=== PATIENT | male | born 1975 | race Hispanic/Latino ===

== ENCOUNTER 2016-11-24 10:56 | Emergency (ER) | payer OTHER ==
[2016-11-24 11:22] VITALS: BMI 27.4
[2016-11-24 11:25] VITALS: BP 149/77; PULSE 81; RESP 16; TEMP 98.8; O2SAT 97
--- NOTE | 2016-11-24 11:35 | ED PDOC ---
Arrival/HPI - General Chief Complaint: Upper Extremity Problem/Injury Time Seen by Provider: 11/24/16 11:27 Historian: Patient - History of Present Illness Narrative History of Present Illness (Text): 11/24/16 11:31 40 y/o male, no significant pmh, nkda, c/o lt. hand 2nd digit index pain s/p smashed by the door at home about 2 hours ago accidentally. Aching pain, no numbness or tingling, no dizziness, no rash, no pain medication taken at home, no other medical or psychological complaints. Past Medical History - Provider Review Nursing Documentation Reviewed: Yes - Infectious Disease Hx of Infectious Diseases: None - Tetanus Immunization Tetanus Immunization: Unknown - Cardiac Hx Cardiac Disorders: No - Pulmonary Hx Respiratory Disorders: No - Neurological Hx Neurological Disorder: No - HEENT Hx HEENT Disorder: No - Renal Hx Renal Disorder: No - Endocrine/Metabolic Hx Endocrine Disorders: No - Hematological/Oncological Hx Blood Disorders: No - Integumentary Hx Dermatological Disorder: No - Musculoskeletal/Rheumatological Hx Musculoskeletal Disorders: No Hx Falls: No - Gastrointestinal Hx Gastrointestinal Disorders: No - Genitourinary/Gynecological Hx Genitourinary Disorders: No - Psychiatric Hx Psychophysiologic Disorder: No Hx Substance Use: No - Surgical History Hx Abdominal Aortic Aneurysm Repair: No Family/Social History - Physician Review Nursing Documentation Reviewed: Yes Family/Social History: Unknown Family HX Smoking Status: Heavy Smoker > 10 Cigarettes Daily Hx Alcohol Use: No Hx Substance Use: No Allergies/Home Meds Allergies/Adverse Reactions: Allergies No Known Allergies Allergy (Verified 11/24/16 11:22) Home Medications: Home Meds Medication Instructions Recorded Confirmed No Known Home Med 11/24/16 11/24/16 Review of Systems - Review of Systems Constitutional: absent: Fatigue, Fevers ENT: absent: Hearing Changes Respiratory: absent: Cough Cardiovascular: absent: Chest Pain Gastrointestinal: absent: Abdominal Pain, Diarrhea, Nausea, Vomiting Musculoskeletal: Arthralgias. absent: Back Pain, Neck Pain, Joint Swelling, Myalgias Neurological: absent: Headache, Dizziness, Focal Weakness, Gait Changes, Speech Changes, Facial Droop, Disequilibrium, Seizure Physical Exam Vital Signs Reviewed: Yes Vital Signs Temp Pulse Resp BP Pulse Ox 11/24/16 11:22 98.8 F 81 16 149/77 97 Temperature: Afebrile Blood Pressure: Normal Pulse: Regular Respiratory Rate: Normal Appearance: Positive for: Well-Appearing, Non-Toxic, Comfortable Pain Distress: Mild Mental Status: Positive for: Alert and Oriented X 3 - Systems Exam Head: Present: Atraumatic, Normocephalic Pupils: Present: PERRL Extroacular Muscles: Present: EOMI Conjunctiva: Present: Normal Mouth: Present: Moist Mucous Membranes Neck: Present: Normal Range of Motion Respiratory/Chest: Present: Clear to Auscultation, Good Air Exchange. No: Respiratory Distress, Accessory Muscle Use Cardiovascular: Present: Regular Rate and Rhythm, Normal S1, S2. No: Murmurs Abdomen: Present: Normal Bowel Sounds. No: Tenderness, Distention, Peritoneal Signs Back: Present: Normal Inspection Upper Extremity: Present: Normal Inspection, Other (Lt. hand 2nd digit: +ttp on the PIPJ with swelling and tenderness, skin intact, no laceration or abrasion, FROM without limitation, sensation intact, motor 5/5, +radial pulse, capillary refil< 2 seconds, neurovascular intact. ). No: Cyanosis, Edema Lower Extremity: Present: Normal Inspection. No: Edema Neurological: Present: GCS=15, Speech Normal, Motor Func Grossly Intact, Gait Normal, Memory Normal Skin: Present: Warm, Dry, Normal Color. No: Rashes Psychiatric: Present: Alert, Oriented x 3, Normal Insight, Normal Concentration Medical Decision Making ED Course and Treatment: 11/24/16 11:34 -xray -tylenol 11/24/16 11:44 -Lt. finger 2nd digit show no fracture or dislocation, finger splint applied with neurovascular intact by me, advised repeat xray after 7 days if pain persist. -Discharge home with finger splint, sling, continue tylenol or motrin for pain, ice compression, follow up with your own pmd and orthopedic within 2 days, return to the ER for any new or worsening signs or symptoms. - RAD Interpretation Radiology Orders: 11/24/16 11:27 HAND LEFT 2ND DIGIT (FINGER) [RAD] Stat PROCEDURE: Left Hand and 2nd digit Radiographs. HISTORY: lt. hand 2nd PIPJ pain with swelling s/p injury COMPARISON: None. FINDINGS: BONES: Normal. No fracture. JOINTS: Normal. No osteoarthritic changes. SOFT TISSUES: Normal. OTHER FINDINGS: None. IMPRESSION: Normal left hand radiographs. Wire Rope Fabrication Supervisor: Radiologist - Medication Orders Current Medication Orders: Discontinued Medications Acetaminophen (Tylenol 325mg Tab) 650 mg PO STAT STA Stop: 11/24/16 11:28 Last Admin: 11/24/16 11:43 Dose: 650 MG MAR Pain/Vitals Document 11/24/16 11:43 [facility] (Rec: 11/24/16 11:44 [facility] [id number]) Pain Reassessment Is This A Pain ReAssessment? No - PA / TRUST EVALUATION SUPERVISOR / Resident Statement MD/DO has reviewed & agrees with the documentation as recorded. Disposition/Present on Arrival - Present on Arrival Any Indicators Present on Arrival: No History of DVT/PE: No History of Uncontrolled Diabetes: No Urinary Catheter: No History of Decub. Ulcer: No History Surgical Site Infection Following: None - Disposition Have Diagnosis and Disposition been Completed?: Yes Diagnosis: Finger injury, Finger contusion Disposition: HOME/ ROUTINE Disposition Time: 11:35 Patient Plan: Discharge Condition: GOOD Additional Instructions: Discharge home with finger splint, continue tylenol or motrin for pain, ice compression, follow up with your own pmd and orthopedic within 2 days, return to the ER for any new or worsening signs or symptoms. Referrals: Hansa Roman MD [Staff Provider] - Follow up with primary [facility] [Outside] - Follow up with primary Forms: WORK NOTE
--- NOTE | 2016-11-24 12:20 | RAD ---
PROCEDURE: Left Hand and 2nd digit Radiographs. HISTORY: lt. hand 2nd PIPJ pain with swelling s/p injury COMPARISON: None. FINDINGS: BONES: Normal. No fracture. JOINTS: Normal. No osteoarthritic changes. SOFT TISSUES: Normal. OTHER FINDINGS: None. IMPRESSION: Normal left hand radiographs.
== END 2016-11-24 12:21 | disposition home or self-care (01) ==
LOC: ED 10:56
DX: S60.022A Contusion of left index finger without damage to nail, initial encounter (principal); W23.0XXA Caught, crushed, jammed, or pinched between moving objects, initial encounter; Y92.009 Unspecified place in unspecified non-institutional (private) residence as the place of occurrence of the external cause

== ENCOUNTER 2017-05-05 21:39 | Observation (INO) | payer OTHER ==
[2017-05-05 21:54] VITALS: BMI 29.9
[2017-05-05 22:13] VITALS: O2SAT 98
--- NOTE | 2017-05-05 22:18 | ED PDOC ---
Arrival/HPI - General Chief Complaint: Chest Pain Time Seen by Provider: 05/05/17 22:11 Historian: Patient - History of Present Illness Narrative History of Present Illness (Text): 05/05/17 22:15 Ry Quiles is a 41 year old male who presents to the Emergency department complaining of intermittent chest pain since this afternoon. Patient reports a history of tobacco abuse. Patient states he took Advil at home. Patient denies any fever, chills, shortness of breath, nausea, vomiting, neck pain, headache, dizziness, or any other complaints. Symptom Onset: Gradual Symptom Course: Unchanged Activities at Onset: Light Context: Home Past Medical History - Provider Review Nursing Documentation Reviewed: Yes - Infectious Disease Hx of Infectious Diseases: None - Tetanus Immunization Tetanus Immunization: Unknown - Cardiac Hx Cardiac Disorders: No - Pulmonary Hx Respiratory Disorders: No - Neurological Hx Neurological Disorder: No - HEENT Hx HEENT Disorder: No - Renal Hx Renal Disorder: No - Endocrine/Metabolic Hx Endocrine Disorders: No - Hematological/Oncological Hx Blood Disorders: No - Integumentary Hx Dermatological Disorder: No - Musculoskeletal/Rheumatological Hx Musculoskeletal Disorders: No Hx Falls: No - Gastrointestinal Hx Gastrointestinal Disorders: No - Genitourinary/Gynecological Hx Genitourinary Disorders: No - Psychiatric Hx Psychophysiologic Disorder: No Hx Substance Use: No - Surgical History Hx Abdominal Aortic Aneurysm Repair: No - Anesthesia Hx Anesthesia: No Family/Social History - Physician Review Nursing Documentation Reviewed: Yes Family/Social History: Unknown Family HX Smoking Status: Heavy Smoker > 10 Cigarettes Daily Hx Alcohol Use: Yes (Beer several times per week) Frequency of alcohol use: Few days per week Hx Substance Use: No Allergies/Home Meds Allergies/Adverse Reactions: Allergies No Known Allergies Allergy (Verified 05/06/17 01:37) Home Medications: Home Meds Medication Instructions Recorded Confirmed No Known Home Med 11/24/16 05/06/17 Review of Systems - Physician Review All systems were reviewed & negative as marked: Yes - Review of Systems Constitutional: Normal. absent: Fevers Eyes: Normal ENT: Normal Respiratory: Normal. absent: SOB, Cough Cardiovascular: Chest Pain Gastrointestinal: Normal. absent: Abdominal Pain, Nausea, Vomiting Genitourinary Male: Normal. absent: Dysuria, Frequency, Hematuria Musculoskeletal: Normal. absent: Back Pain, Neck Pain Skin: Normal Neurological: Normal. absent: Headache, Dizziness Endocrine: Normal Hemo/Lymphatic: Normal Psychiatric: Normal Physical Exam Vital Signs Reviewed: Yes Vital Signs Temp Pulse Pulse Resp BP BP Pulse Ox 05/06/17 01:09 52 L 17 129/83 98 05/06/17 01:00 52 L 129/83 05/05/17 23:30 56 L 05/05/17 21:50 98.6 F 53 L 15 120/85 98 05/05/17 21:48 98.5 F 52 L 18 120/85 100 Temperature: Afebrile Blood Pressure: Normal Pulse: Regular Respiratory Rate: Normal Appearance: Positive for: Well-Appearing, Non-Toxic, Comfortable Pain Distress: None Mental Status: Positive for: Alert and Oriented X 3 - Systems Exam Head: Present: Atraumatic, Normocephalic Pupils: Present: PERRL Extroacular Muscles: Present: EOMI Conjunctiva: Present: Normal Mouth: Present: Moist Mucous Membranes Neck: Present: Normal Range of Motion Respiratory/Chest: Present: Clear to Auscultation, Good Air Exchange. No: Respiratory Distress, Accessory Muscle Use Cardiovascular: Present: Regular Rate and Rhythm, Normal S1, S2. No: Murmurs Abdomen: Present: Normal Bowel Sounds. No: Tenderness, Distention, Peritoneal Signs Back: Present: Normal Inspection Upper Extremity: Present: Normal Inspection. No: Cyanosis, Edema Lower Extremity: Present: Normal Inspection. No: Edema Neurological: Present: GCS=15, CN II-XII Intact, Speech Normal Skin: Present: Warm, Dry, Normal Color. No: Rashes Psychiatric: Present: Alert, Oriented x 3, Normal Insight, Normal Concentration Medical Decision Making ED Course and Treatment: 05/05/17 22:15 Impression: 41 year old male complaining of intermittent chest pain since this afternoon. Plan: -- EKG -- Chest X-ray -- Labs, cardiac enzymes -- Reassess and disposition Prior Visits: Notes and results from previous visits were reviewed. On 11/24/2016, pt was seen in the Emergency department for left hand pain s/p injury. Pt was d/c home. Progress Notes: Reviewed EKG, sinus bradycardia at [address]-segment elevations or depressions, no T-wave inversions. 05/06/17 00:33 Reviewed radiology, Chest X-ray shows no acute processes. 05/06/17 01:[address] Lucas, who is aware and agrees with plan. Accepts pt in to her service. Pt will go to Telemetry observation for chest pain. - Lab Interpretations Lab Results: 05/05/17 22:30 05/05/17 22:41 Lab Results 05/05/17 22:41: Sodium 140, Potassium 4.1, Chloride 103, Carbon Dioxide 27, Anion Gap 14, BUN 16, Creatinine 1.0, Est GFR ( Amer) > 60, Est GFR (Non- Af Amer) > 60, Random Glucose 89, Calcium 9.2, Total Bilirubin 0.8, AST 65 H, ALT 113 H, Alkaline Phosphatase 59, Lactate Dehydrogenase 473, Total Creatine Kinase 99, Troponin I < 0.01, Total Protein 6.9, Albumin 4.4, Globulin 2.4, Albumin/Globulin Ratio 1.8 05/05/17 22:41: PT 10.4, INR 0.96, APTT 25.7 05/05/17 22:30: WBC 7.0, RBC 4.49, Hgb 14.2, Hct 41.0 L, MCV 91.3, MCH 31.6, MCHC 34.6, RDW 12.2, Plt Count 196, MPV 10.3 I have reviewed the lab results: Yes - RAD Interpretation Radiology Orders: 05/05/17 22:16 CHEST PORTABLE [RAD] Stat Fabric Cutter: ED Physician - EKG Interpretation Interpreted by ED Physician: Yes Type: 12 lead EKG - Medication Orders Current Medication Orders: Discontinued Medications Aspirin (Aspirin) 325 mg PO ONCE STA Stop: 05/05/17 22:29 Last Admin: 05/05/17 23:15 Dose: 325 mg - Scribe Statement The provider has reviewed the documentation as recorded by the Maríaibpiotr Gómez All medical record entries made by the Ozzie were at my direction and personally dictated by me. I have reviewed the chart and agree that the record accurately reflects my personal performance of the history, physical exam, medical decision making, and the department course for this patient. I have also personally directed, reviewed, and agree with the discharge instructions and disposition. Disposition/Present on Arrival - Present on Arrival Any Indicators Present on Arrival: No History of DVT/PE: No History of Uncontrolled Diabetes: No Urinary Catheter: No History of Decub. Ulcer: No History Surgical Site Infection Following: None - Disposition Have Diagnosis and Disposition been Completed?: Yes Diagnosis: Chest pain Disposition: HOSPITALIZED Disposition Time: 01:50 Patient Plan: Observation Condition: STABLE Discharge Instructions (ExitCare): Chest Pain (ED) Forms: [facility] (Haitian)
[2017-05-05 22:54] LABS: ALB/GLOB RATIO 1.8 (1.1-1.8); ALKALINE PHOSPHATASE 59 U/L (38-126); ALT/SGPT 113 U/L (7-56); AST/SGOT 65 U/L (17-59); BILIRUBIN,TOTAL 0.8 mg/dL (0.2-1.3); BLOOD UREA NITROGEN 16 mg/dL (7-21); CALCIUM 9.2 mg/dL (8.4-10.5); CARBON DIOXIDE 27 mmol/L (21-33); CHLORIDE 103 mmol/L (98-107); GFR AFRICAN-AMERICAN > 60; GLUCOSE,RANDOM 89 mg/dL (70-110); POTASSIUM 4.1 mmol/L (3.6-5.0); SODIUM 140 mmol/L (132-148); TOTAL PROTEIN 6.9 g/dL (5.8-8.3)
[2017-05-05 22:56] LABS: INR 0.96 (0.93-1.08); PARTIAL THROMBOPLASTIN TIME 25.7 Seconds (23.7-30.8)
[2017-05-05 23:15] LABS: TROPONIN I < 0.01 ng/mL
[2017-05-06 00:41] LABS: MEAN CELL VOLUME 91.3 fl (80.0-105.0); MEAN CORPUSCULAR HEMOGLOBIN 31.6 pg (25.0-35.0); MEAN CORPUSCULAR HGB CONC 34.6 g/dl (31.0-37.0); MEAN PLATELET VOLUME 10.3 fl (7.0-11.0); RED CELL DISTRIBUTION WIDTH 12.2 % (11.5-14.5)
[2017-05-06 06:30] VITALS: BP 111/59; TEMP 98.2
[2017-05-06 09:25] LABS: CHOLESTEROL 173 mg/dL (130-200)
[2017-05-06 09:31] LABS: TROPONIN I < 0.01 ng/mL
--- NOTE | 2017-05-06 11:30 | RAD ---
HISTORY: fever COMPARISON: Chest radiographs 05/11/2016. FINDINGS: LUNGS: No active pulmonary disease. PLEURA: No significant pleural effusion identified, no pneumothorax apparent. CARDIOVASCULAR: Normal. OSSEOUS STRUCTURES: No significant abnormalities. VISUALIZED UPPER ABDOMEN: Normal. OTHER FINDINGS: None. IMPRESSION: No interval acute cardiopulmonary disease is appreciated. The examination is unchanged in the interval grossly.
[2017-05-06 12:16] VITALS: PULSE 51; RESP 16
--- NOTE | 2017-05-06 16:09 | CON ---
DATE: 05/06/2017 PAST MEDICAL HISTORY: Nothing significant. No history of coronary artery disease. No documented or known coronary artery disease. PAST SURGICAL HISTORY: Denies. ALLERGIES: NO KNOWN DRUG ALLERGIES. CURRENT MEDICATION: None. FAMILY HISTORY: Father with the oral cancer. SOCIAL HISTORY: Half a pack to 1 pack smokes for 10 years. History of alcohol abuse, 2 to 3 cans of beer everyday after the work. Works as a construction director. REVIEW OF SYSTEMS: As per HPI. PHYSICAL EXAMINATION GENERAL: Text. VITAL SIGNS: Height is 5 feet 11 inches, weight 211 pounds and body mass index 30 kg/meter square. Temperature afebrile, heart rate 51 and blood pressure /59. HEENT: PERRLA. Extraocular muscles intact. NECK: Supple. No carotid bruit or thyromegaly. CHEST: Clear to auscultation. HEART: S1 and S2 regular. ABDOMEN: Soft. EXTREMITIES: Clubbing or cyanosis negative. LABORATORY DATA: EKG shows sinus bradycardia. No acute ST-T changes noted. Blood work up as follows: WBC 7, hemoglobin 14, hematocrit 41.0, platelet count 196. Chemistries shows sodium 140, potassium 4.0, chloride 106, carbon dioxide 27, anion gap of 14, BUN 16, creatinine 1.0. Troponin 0.01. IMPRESSION: Atypical chest pain. 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 If the troponin remains negative, the patient will be okay to be discharged from cardiology point of view. Arrangement have been made to stress test as outpatient in next week. contact information given to the cardiology department. The patient prefers to be contacted on cell phone, so the cell phone number [phone] was given to the cardiology [place] to contact the patient and schedule a stress test as outpatient. Interim we will get troponin, lipid profile, TSH and will get echo. Thank you Dr. Lucas for providing me the opportunity in taking care of the patient, Kb Raza. Jhonathan Lo MD cc: Giovanna Lucas MD [facility] # [id number]
--- NOTE | 2017-05-06 23:20 | CARD ---
APPROVED REPORT EKG Measurement Heart [id number] <Conclusion> Sinus bradycardia Otherwise normal ECG
== END 2017-05-06 12:13 | disposition home or self-care (01) ==
LOC: ED 21:39 → ERH 05-06 01:51 → 2RSO 05-06 02:56
PROVIDERS: ADMIT Internal Medicine; ATTEND Internal Medicine
DX: R07.89 Other chest pain (principal); R00.1 Bradycardia, unspecified; F17.210 Nicotine dependence, cigarettes, uncomplicated; F10.10 Alcohol abuse, uncomplicated; R40.2412 Glasgow coma scale score 13-15, at arrival to emergency department
CPT/HCPCS: 36415; 71010; 80053; 80061; 82550; 83615; 84443; 84484; 85027; 85610; 85730; 93005; 99285; G0378

== ENCOUNTER 2017-12-24 15:02 | Emergency (ER) | payer SELFPAY ==
[2017-12-24 15:08] VITALS: BMI 28.7
[2017-12-24] MEDS ORDERED: Sodium Chloride 0.9% 1,000 ML IV ONE (15:17)
[2017-12-24 16:02] LABS: BASO # 0.01 K/mm3 (0.0-2.0); BASO % 0.1 % (0.0-3.0); EOS # 0.1 (0.0-0.7); EOS % 1.6 % (1.5-5.0); GRAN # 4.29 (1.4-6.5); GRAN % 64.1 % (50.0-68.0); HEMOGLOBIN 13.9 g/dL (14.0-18.0); LYMPH # 1.9 (1.2-3.4); LYMPH % 28.4 % (22.0-35.0); MEAN CELL VOLUME 89.5 fl (80.0-105.0); MEAN CORPUSCULAR HEMOGLOBIN 31.2 pg (25.0-35.0); MEAN CORPUSCULAR HGB CONC 34.8 g/dl (31.0-37.0); MEAN PLATELET VOLUME 9.9 fl (7.0-11.0); MONO # 0.4 (0.1-0.6); MONO % 5.8 % (1.0-6.0); RBC 4.46 10^6/uL (3.5-6.1); RED CELL DISTRIBUTION WIDTH 11.7 % (11.5-14.5); WHITE BLOOD COUNT 6.7 10^3/ul (4.5-11.0)
[2017-12-24 16:14] LABS: ALB/GLOB RATIO 1.7 (1.1-1.8); ALBUMIN 4.4 g/dL (3.0-4.8); ALT/SGPT 42 U/L (7-56); AST/SGOT 26 U/L (17-59); BLOOD UREA NITROGEN 21 mg/dL (7-21); CALCIUM 9.4 mg/dL (8.4-10.5); GFR AFRICAN-AMERICAN > 60; GFR NON-AFRICAN AMERICAN > 60
[2017-12-24 16:25] LABS: TROPONIN I < 0.01 ng/mL
[2017-12-24 16:42] VITALS: BP 140/81; PULSE 62; RESP 19; TEMP 97.9; O2SAT 97
--- NOTE | 2017-12-24 17:04 | ED PDOC ---
Arrival/HPI - General Chief Complaint: Dizziness/Lightheaded Time Seen by Provider: 12/24/17 15:15 Historian: Patient - History of Present Illness Narrative History of Present Illness (Text): 12/24/17 17:01 A 42 year old male presents to the emergency department complaining of mild dizziness today. Patient reports his symptoms began while screwing in a light bulb at home. Patient believes he was electrocuted, which caused the dizziness. Patient denies any fever, chills, nausea, vomiting, abdominal pain, chest pain, shortness of breath, headache or any other complaints. Time/Duration: Prior to Arrival Context: Home Past Medical History - Provider Review Nursing Documentation Reviewed: Yes - Infectious Disease Hx of Infectious Diseases: None - Tetanus Immunization Tetanus Immunization: Unknown - Cardiac Hx Cardiac Arrhythmia: Yes - Pulmonary Hx Respiratory Disorders: No - Neurological Hx Neurological Disorder: No - HEENT Hx HEENT Disorder: No - Renal Hx Renal Disorder: No - Endocrine/Metabolic Hx Endocrine Disorders: No - Hematological/Oncological Hx Blood Disorders: No - Integumentary Hx Dermatological Disorder: No - Musculoskeletal/Rheumatological Hx Musculoskeletal Disorders: No Hx Falls: No - Gastrointestinal Hx Gastrointestinal Disorders: No - Genitourinary/Gynecological Hx Genitourinary Disorders: No - Psychiatric Hx Psychophysiologic Disorder: No Hx Substance Use: No - Surgical History Hx Abdominal Aortic Aneurysm Repair: No - Anesthesia Hx Anesthesia: No Family/Social History - Physician Review Nursing Documentation Reviewed: Yes Family/Social History: No Known Family HX Smoking Status: Light Smoker < 10 Cigarettes Daily Hx Alcohol Use: Yes (2-3 beers daily) Hx Substance Use: No Allergies/Home Meds Allergies/Adverse Reactions: Allergies No Known Allergies Allergy (Verified 05/06/17 01:37) Review of Systems - Physician Review All systems were reviewed & negative as marked: Yes - Review of Systems Constitutional: absent: Fevers, Night Sweats Respiratory: absent: SOB Cardiovascular: absent: Chest Pain Gastrointestinal: absent: Abdominal Pain, Nausea, Vomiting Neurological: Dizziness. absent: Headache Physical Exam Vital Signs Reviewed: Yes Vital Signs Temp Pulse Resp BP Pulse Ox 12/24/17 16:40 97.9 F 62 19 140/81 97 12/24/17 15:09 97.5 F L 59 L 18 136/84 98 Temperature: Afebrile Blood Pressure: Normal Pulse: Bradycardic Respiratory Rate: Normal Appearance: Positive for: Well-Appearing, Non-Toxic, Comfortable Pain Distress: None Mental Status: Positive for: Alert and Oriented X 3 - Systems Exam Head: Present: Atraumatic, Normocephalic Pupils: Present: PERRL Extroacular Muscles: Present: EOMI Conjunctiva: Present: Normal Mouth: Present: Moist Mucous Membranes Neck: Present: Normal Range of Motion Respiratory/Chest: Present: Clear to Auscultation, Good Air Exchange. No: Respiratory Distress, Accessory Muscle Use Cardiovascular: Present: Regular Rate and Rhythm, Normal S1, S2. No: Murmurs Abdomen: Present: Normal Bowel Sounds. No: Tenderness, Distention, Peritoneal Signs Back: Present: Normal Inspection Upper Extremity: Present: Normal Inspection. No: Cyanosis, Edema Lower Extremity: Present: Normal Inspection. No: Edema Neurological: Present: GCS=15, CN II-XII Intact, Speech Normal Skin: Present: Warm, Dry, Normal Color. No: Rashes, Erythematous, Abrasion, Other (burn lyon) Psychiatric: Present: Alert, Oriented x 3, Normal Insight, Normal Concentration Medical Decision Making ED Course and Treatment: 12/24/17 17:01 Impression: A 42 year old male with mild dizziness Plan: -- EKG -- Labs -- Urinalysis -- Meclizine and IV fluids -- Reassess and disposition Progress Notes: EKG shows sinus bradycardia at [address]-segment elevations, normal intervals. Interpreted by me. On re-evaluation, patient feels better and is in no acute distress. I have discussed the results and plan with the patient, who expresses understanding. Patient in agreement with plan to be discharged home. Patient is stable for discharge. Patient was instructed to follow up with physician or return if symptoms worsen or new concerning symptoms arise. - Lab Interpretations Lab Results: 12/24/17 15:50 12/24/17 15:50 Lab Results 12/24/17 15:50: Sodium 146, Potassium 4.2, Chloride 106, Carbon Dioxide 28, Anion Gap 16, BUN 21, Creatinine 1.2, Est GFR ( Amer) > 60, Est GFR (Non- Af Amer) > 60, Random Glucose 91, Calcium 9.4, Magnesium 2.2, Total Bilirubin 1.0, AST 26, ALT 42, Alkaline Phosphatase 53, Lactate Dehydrogenase 380, Total Creatine Kinase 100, Troponin I < 0.01, Total Protein 6.9, Albumin 4.4, Globulin 2.5, Albumin/Globulin Ratio 1.7 12/24/17 15:50: WBC 6.7, RBC 4.46, Hgb 13.9 L, Hct 39.9 L, MCV 89.5, MCH 31.2, MCHC 34.8, RDW 11.7, Plt Count 210, MPV 9.9, Gran % 64.1, Lymph % (Auto) 28.4, Mathews % (Auto) 5.8, Eos % (Auto) 1.6, Baso % (Auto) 0.1, Gran # 4.29, Lymph # ( Auto) 1.9, Mathews # (Auto) 0.4, Eos # (Auto) 0.1, Baso # (Auto) 0.01 I have reviewed the lab results: Yes - Medication Orders Current Medication Orders: Discontinued Medications Sodium Chloride (Sodium Chloride 0.9%) 1,000 mls @ 250 mls/hr IV .Q4H ONE Stop: 12/24/17 19:16 Last Admin: 12/24/17 15:57 Dose: 250 mls/hr eMAR Start Stop Document 12/24/17 15:57 [email or web address] (Rec: 12/24/17 15:57 [id number]) Intravenous Solution Start Date 12/24/17 Start Time 15:57 End Date 12/24/17 Meclizine HCl (Antivert) 25 mg PO STAT STA Stop: 12/24/17 15:29 Last Admin: 12/24/17 15:58 Dose: 25 mg - Scribe Statement The provider has reviewed the documentation as recorded by the Ozzie Gross Provider Scribe Attestation: All medical record entries made by the Maríaibpiotr were at my direction and personally dictated by me. I have reviewed the chart and agree that the record accurately reflects my personal performance of the history, physical exam, medical decision making, and the department course for this patient. I have also personally directed, reviewed, and agree with the discharge instructions and disposition. Disposition/Present on Arrival - Present on Arrival Any Indicators Present on Arrival: No History of DVT/PE: No History of Uncontrolled Diabetes: No Urinary Catheter: No History of Decub. Ulcer: No History Surgical Site Infection Following: None - Disposition Have Diagnosis and Disposition been Completed?: Yes Diagnosis: Dizziness Disposition: HOME/ ROUTINE Disposition Time: 16:35 Condition: IMPROVED Discharge Instructions (ExitCare): Vertigo (a Type of Dizziness) (DC) Additional Instructions: Thank you for letting us take care of you today. The emergency medical care you received today was directed at your acute symptoms. If you were prescribed any medication, please fill it and take as directed. It may take several days for your symptoms to resolve. Return to the Emergency Department if your symptoms worsen, do not improve, or if you have any other problems. Please contact your doctor or call one of the physicians/clinics you have been referred to that are listed on the Patient Visit Information form that is included in your discharge packet. Bring any paperwork you were given at discharge with you along with any medications you are taking to your follow up visit. Our treatment cannot replace ongoing medical care by a primary care provider (PCP) outside of the emergency department. Thank you for allowing the [facility] team to be part of your care today. Follow up with your primary doctor in 2-3 days for re-evaluation and further treatment. Prescriptions: Meclizine [Meclizine*] 25 mg PO Q6 PRN #20 tab PRN Reason: Dizziness Referrals: Tanisha Lundy MD [Primary Care Provider] - Follow up with primary Forms: [employer] (Trinidadian)
--- NOTE | 2017-12-25 10:07 | CARD ---
APPROVED REPORT EKG Measurement Heart [id number] <Conclusion> Sinus bradycardia Otherwise normal ECG No change
== END 2017-12-24 16:41 | disposition home or self-care (01) ==
LOC: ED 15:02
DX: R42 Dizziness and giddiness (principal); F17.210 Nicotine dependence, cigarettes, uncomplicated
CPT/HCPCS: 80053; 82550; 83615; 83735; 84484; 85025; 93005; 99285; J7040

== ENCOUNTER 2018-12-24 02:53 | Emergency (ER) | payer BC ==
[2018-12-24 02:53] VITALS: BMI 28.7
[2018-12-24 03:02] VITALS: RESP 18
--- NOTE | 2018-12-24 03:48 | ED PDOC ---
Arrival/HPI - General Chief Complaint: Chest Pain Time Seen by Provider: 12/24/18 02:59 Historian: Patient - History of Present Illness Narrative History of Present Illness (Text): 12/24/18 03:47 A 43 year old male presents to the emergency department complaining of non- radiating left-side chest pain for 5 days. Patient reports no exacerbating factors. States he took Advil PM for pain and was able to sleep, and thinks pain decreased when sleeping, however is uncertain. Patient denies any dizziness, nausea, leg pain/swelling, or any other complaints at this time. Denies any family history of cardiac issues. Admits to smoking 1 pack daily. Past Medical History - Provider Review Nursing Documentation Reviewed: Yes - Infectious Disease Hx of Infectious Diseases: None - Tetanus Immunization Tetanus Immunization: Unknown - Cardiac Hx Cardiac Disorders: Yes Hx Cardiac Arrhythmia: Yes - Pulmonary Hx Respiratory Disorders: No - Neurological Hx Neurological Disorder: No - HEENT Hx HEENT Disorder: No - Renal Hx Renal Disorder: No - Endocrine/Metabolic Hx Endocrine Disorders: No - Hematological/Oncological Hx Blood Disorders: No - Integumentary Hx Dermatological Disorder: No - Musculoskeletal/Rheumatological Hx Musculoskeletal Disorders: No Hx Falls: No - Gastrointestinal Hx Gastrointestinal Disorders: No - Genitourinary/Gynecological Hx Genitourinary Disorders: No - Psychiatric Hx Psychophysiologic Disorder: No Hx Substance Use: No - Surgical History Hx Abdominal Aortic Aneurysm Repair: No - Anesthesia Hx Anesthesia: No Family/Social History - Physician Review Nursing Documentation Reviewed: Yes Family/Social History: No Known Family HX Smoking Status: Light Smoker < 10 Cigarettes Daily Hx Alcohol Use: Yes (2-3 beers daily) Hx Substance Use: No Allergies/Home Meds Allergies/Adverse Reactions: Allergies No Known Allergies Allergy (Verified 12/24/18 03:08) Home Medications: Home Meds Medication Instructions Recorded Confirmed No Known Home Med 12/24/18 12/24/18 Review of Systems - Physician Review All systems were reviewed & negative as marked: Yes - Review of Systems Cardiovascular: Chest Pain Gastrointestinal: absent: Nausea Musculoskeletal: absent: Other (no leg pain/swelling) Neurological: absent: Dizziness Physical Exam Vital Signs Reviewed: Yes Vital Signs Temp Pulse Resp BP Pulse Ox 12/24/18 02:59 98.2 F 78 18 163/104 H 98 Temperature: Afebrile Blood Pressure: Hypertensive Pulse: Regular Respiratory Rate: Normal Appearance: Positive for: Well-Appearing, Non-Toxic, Comfortable Pain Distress: None Mental Status: Positive for: Alert and Oriented X 3 - Systems Exam Head: Present: Atraumatic, Normocephalic Pupils: Present: PERRL Extroacular Muscles: Present: EOMI Conjunctiva: Present: Normal Mouth: Present: Moist Mucous Membranes Neck: Present: Normal Range of Motion Respiratory/Chest: Present: Clear to Auscultation, Good Air Exchange. No: Respiratory Distress, Accessory Muscle Use Cardiovascular: Present: Regular Rate and Rhythm, Normal S1, S2. No: Murmurs Abdomen: No: Tenderness, Distention, Peritoneal Signs Back: Present: Normal Inspection Upper Extremity: Present: Normal Inspection. No: Cyanosis, Edema Lower Extremity: Present: Normal Inspection. No: Edema Neurological: Present: GCS=15, CN II-XII Intact, Speech Normal Skin: Present: Warm, Dry, Normal Color. No: Rashes Psychiatric: Present: Alert, Oriented x 3, Normal Insight, Normal Concentration Medical Decision Making ED Course and Treatment: 12/24/18 03:48 Impression: 43 year old male with left-side non-radiating chest pain. Plan: -- EKG -- Chest X-ray -- Labs -- Reassess and disposition Progress Notes: 12/24/18 03:02 EKG: Ordered, reviewed, and independently interpreted the EKG. Rate : 71 BPM Rhythm : NSR Interpretation : No ST-segment elevations, normal access, normal intervals. Comparison : No previous EKG for comparison. CXR done: No acute disease as read by me. 12/24/18 04:36 Patient re-evaluated, he is in no distress with no complaints at this time. Watching videos on his phone, appears comfortable. Results discussed. Patient has had constant chest pain for 5 days, but EKG was normal and troponin was negative. Unlikely to be ACS at this time. Patient advised to follow up with PMD. Return to the ED for any new or worsening symptoms. - RAD Interpretation Radiology Orders: 12/24/18 03:27 CHEST PORTABLE [RAD] Stat - Scribe Statement The provider has reviewed the documentation as recorded by the Ozzie Franks Provider Scribe Attestation: All medical record entries made by the Scribe were at my direction and personally dictated by me. I have reviewed the chart and agree that the record accurately reflects my personal performance of the history, physical exam, medical decision making, and the department course for this patient. I have also personally directed, reviewed, and agree with the discharge instructions and disposition. Disposition/Present on Arrival - Present on Arrival Any Indicators Present on Arrival: No History of DVT/PE: No History of Uncontrolled Diabetes: No Urinary Catheter: No History of Decub. Ulcer: No History Surgical Site Infection Following: None - Disposition Have Diagnosis and Disposition been Completed?: Yes Diagnosis: Chest pain Disposition: HOME/ ROUTINE Disposition Time: 04:35 Condition: STABLE Discharge Instructions (ExitCare): Chest Pain (ED) Additional Instructions: NOEMI DELGADILLO, thank you for letting us take care of you today. Your provider was Isadora Hannon MD and you were treated for CHEST PAIN. The emergency medical care you received today was directed at your acute symptoms. If you were prescribed any medication, please fill it and take as directed. It may take several days for your symptoms to resolve. Return to the Emergency Department if your symptoms worsen, do not improve, or if you have any other problems. Please contact your doctor or call one of the physicians/clinics you have been referred to that are listed on the Patient Visit Information form that is included in your discharge packet. Bring any paperwork you were given at discharge with you along with any medications you are taking to your follow up visit. Our treatment cannot replace ongoing medical care by a primary care provider outside of the emergency department. Thank you for allowing the [facility] team to be part of your care today. If you had an X-Ray or CT scan: A Radiologist will review the ED reading if any change in treatment is needed we will contact you. If you had a blood, urine, or wound culture: It will take several days for the results, if any change in treatment is needed we will contact you. If you had an STI test: It will take 48 hours for the results. Please call after 1 week if you have not heard back. Forms: [employer] (Lebanese)
[2018-12-24 03:57] LABS: BASO # 0.02 K/mm3 (0.0-2.0); BASO % 0.2 % (0.0-3.0); EOS # 0.1 (0.0-0.7); EOS % 0.7 % (1.5-5.0); HEMOGLOBIN 14.6 g/dL (14.0-18.0); LYMPH # 1.8 (1.2-3.4); LYMPH % 20.8 % (22.0-35.0); MEAN CELL VOLUME 90.5 fl (80.0-105.0); MEAN CORPUSCULAR HEMOGLOBIN 31.5 pg (25.0-35.0); MEAN CORPUSCULAR HGB CONC 34.8 g/dl (31.0-37.0); MONO # 0.3 (0.1-0.6); MONO % 3.6 % (1.0-6.0); RBC 4.64 10^6/uL (3.5-6.1); RED CELL DISTRIBUTION WIDTH 11.9 % (11.5-14.5); WHITE BLOOD COUNT 8.7 10^3/uL (4.5-11.0)
[2018-12-24 04:04] LABS: ALB/GLOB RATIO 1.6 (1.1-1.8); ALBUMIN 4.7 g/dL (3.0-4.8); ALT/SGPT 30 U/L (7-56); AST/SGOT 30 U/L (17-59); BLOOD UREA NITROGEN 13 mg/dL (7-21); CALCIUM 9.4 mg/dL (8.4-10.5); GFR NON-AFRICAN AMERICAN > 60
[2018-12-24 04:16] LABS: TROPONIN I < 0.01 ng/mL
[2018-12-24 04:38] VITALS: BP 130/74; PULSE 71; O2SAT 96
[2018-12-24 05:01] VITALS: TEMP 98
--- NOTE | 2018-12-24 08:25 | RAD ---
HISTORY: chest pain COMPARISON: Chest x-ray performed 05/05/17 TECHNIQUE: Chest, one view. FINDINGS: LUNGS: No focal consolidation. Please note that chest x-ray has limited sensitivity for the detection of pulmonary masses. PLEURA: No significant pleural effusion identified. No definite pneumothorax . CARDIOVASCULAR: The cardiomediastinal silhouette appears within normal limits of size. No significant atherosclerotic calcification present. OSSEOUS STRUCTURES: No acute osseous abnormality identified. VISUALIZED UPPER ABDOMEN: Unremarkable. OTHER FINDINGS: None. IMPRESSION: No acute findings identified.
--- NOTE | 2018-12-24 09:34 | CARD ---
APPROVED REPORT Date of service: 12/24/2018 EKG Measurement Heart [id number] <Conclusion> Normal sinus rhythm Normal ECG
== END 2018-12-24 05:00 | disposition home or self-care (01) ==
LOC: ED 02:53
DX: R07.9 Chest pain, unspecified (principal); I49.9 Cardiac arrhythmia, unspecified; F17.210 Nicotine dependence, cigarettes, uncomplicated